=== PATIENT | female | born 1965 | race Caucasian/White ===

== ENCOUNTER 2018-10-01 23:10 | Inpatient (IN) | payer MEDICARE ==
[~2018-10-01] VITALS: Ht 162.6 cm; Wt 86.0 kg
[~2018-10-01 23:10] MED LIST: AMOX1XR PO; Baclofen20 MG PO; CALCA500CH PO; CHOL10002 PO; COPAXONE SQ; CYCL10 PO; DIAZ5 PO; DULO30 PO; FLONASE ALLERG9.9 ML; FLUO10 PO; FLUO20; FLUO20 PO; IBUP400 PO; INTE30I; LAVAP17G PO; META800 PO; NAPR220 PO; OXYACE5T PO; OXYACE7.5T PO; PREG50; PROBIOTIC1 EAC1 PO; Percocet 5-3251 EACH PO; RXOXYACE PO; TRAM50 PO; TURMERIC500 MG PO; Tysabri300 MG/15 IV; Valium5 MG PO; [UNRECOGNIZED DRUG - CODE] PO
[2018-10-01 23:56] LABS: BASOPHILS ABSOLUTE AUTO 0.07 K/mm3 (0.00-0.23); BASOPHILS PERCENT AUTO 1 % (0-2); EOSINOPHILS ABSOLUTE AUTO 0.25 K/mm3 (0.00-0.68); EOSINOPHILS PERCENT AUTO 2 % (0-6); Hematocrit 44.2 % (33.0-51.0); Hemoglobin 14.3 g/dL (11.5-16.0); IMMATURE GRAN ABSOLUTE AUTO 0.03 K/mm3 (0.00-0.10); IMMATURE GRAN PERCENT AUTO 0 % (0-1); LYMPHOCYTES ABSOLUTE AUTO 1.62 K/mm3 (0.84-5.20); LYMPHOCYTES PERCENT AUTO 14 % (21-46); MONOCYTES ABSOLUTE AUTO 1.01 K/mm3 (0.16-1.47); MONOCYTES PERCENT AUTO 9 % (4-13); Mean Corpuscular HGB 29.1 pg (26.0-34.0); Mean Corpuscular HGB Conc 32.4 g/dL (31.5-36.5); Mean Corpuscular Volume 90 fL (80-100); Mean Platelet Volume 9.6 fL (9.1-12.4); NEUTROPHILS ABSOLUTE AUTO 8.54 K/mm3 (1.96-9.15); NEUTROPHILS PERCENT AUTO 74 % (41-73); Platelet Count 340 K/mm3 (150-400); RDW Coefficient Variation 12.6 % (11.7-14.2); RDW Standard Deviation 41.7 fL (35.1-46.3); Red Blood Cell Count 4.91 M/mm3 (3.80-5.20); White Blood Cell Count 11.52 K/mm3 (4.00-11.30)
[2018-10-02 00:14] LABS: Alanine Aminotransfer (ALT/SGP 18 U/L (12-78); Albumin, Blood 4.2 g/dL (3.4-5.0); Albumin/Globulin Ratio 1.1 (0.8-1.8); Alk Phos 188 U/L (50-136); Anion Gap 9 mmol/L (6-16); Aspartate Aminotrans (AST/SGOT 15 U/L (12-37); Bilirubin, Total 0.6 mg/dL (0.1-1.0); Blood Urea Nitrogen 12 mg/dL (8-24); Bun/Creatinine Ratio 18.4 (12.0-20.0); CO2, Blood 22 mmol/L (21-32); Chloride, Blood 106 mmol/L (98-108); Creatinine, Blood 0.65 mg/dL (0.40-1.00); Globulin, Blood 3.7 g/dL (2.2-4.0); Glomerular Filtration Rate >60 (60-); Glucose, Blood 148 mg/dL (70-99); Potassium, Blood 3.9 mmol/L (3.5-5.5); Sodium, Blood 137 mmol/L (136-145); Total Protein, Blood 7.9 g/dL (6.4-8.2)
[2018-10-02] MEDS ORDERED: ATOR10 PO (01:25)
[2018-10-02] MEDS ORDERED: METF500 PO (01:26)
[2018-10-02] MEDS ORDERED: OCREVUS300 MG/10 IV (01:27)
[2018-10-02 02:17] LABS: Source, Urine Clean Catch
[2018-10-02 02:20] LABS: Bilirubin, Urine Neg (Neg); Blood, Urine 1+ (Neg); Glucose Qualitative, Urine Neg (Neg); Ketones, Urine Neg (Neg); Leukocyte Esterase, Urine Neg (Neg); Nitrite, Urine Neg (Neg); Protein, Urine 1+ (Neg); Urobilinogen, Urine NORM (Normal)
[2018-10-02 02:21] LABS: Appearance, Urine Clear (Clear); Color, Urine Yellow (P-Yellow)
[2018-10-02 02:29] LABS: Bacteria Not Seen /hpf; Mucus Light (0-Heavy); Red Blood Cells, Urine Rare /hpf (0-2); Squamous Epithelial Cells Mod /hpf (Few); White Blood Cells, Urine Not Seen /hpf (0-5)
[2018-10-02 03:14] LABS: Influenza A Negative (NEGATIVE); Influenza B Negative (NEGATIVE)
--- NOTE | 2018-10-02 05:53 | NUR ---
LOOM FIXER APPRENTICE SUMMARY NEW ADMIT FROM THE ER. PT AAOX4 AND VERY PLEASANT. ADMITTED WITH WHAT THE PT DESCRIBES "A FLARE UP OF MY MS". PT REPORTS EXTREME WEAKNESS OF BLE AND IS UNABLE TO AMBULATE AT THIS TIME. AT BASELINE PT AMBULATES WITH A FWW. LO CATHETER PLACED IN ER PRIOR TO COMING TO MED FLOOR. STARTED ON ABX AND SOLUMEDROL DRIP. PT DENIES PAIN, SOB, N/V. VSS, WILL CONTINUE TO MONITOR.
[2018-10-02 06:58] LABS: Adenovirus Not Detected (NOT DETECT); Bordetella pertussis Not Detected (NOT DETECT); Chlamydophila pneumoniae Not Detected (NOT DETECT); Coronavirus 229E Not Detected (NOT DETECT); Coronavirus HKU1 Not Detected (NOT DETECT); Coronavirus NL63 Not Detected (NOT DETECT); Coronavirus OC43 Detected (NOT DETECT); Human Metapneumovirus Not Detected (NOT DETECT); Human Rhinovirus/Enterovirus Not Detected (NOT DETECT); Influenza A Not Detected (NOT DETECT); Influenza A/2009-H1 Not Detected (NOT DETECT); Influenza A/H1 Not Detected (NOT DETECT); Influenza A/H3 Not Detected (NOT DETECT); Influenza B Not Detected (NOT DETECT); Mycoplasma pneumoniae Not Detected (NOT DETECT); Parainfluenza Virus 1 Not Detected (NOT DETECT); Parainfluenza Virus 2 Not Detected (NOT DETECT); Parainfluenza Virus 3 Not Detected (NOT DETECT); Parainfluenza Virus 4 Not Detected (NOT DETECT); Respiratory Syncytial Virus Not Detected (NOT DETECT)
[2018-10-02 07:28] LABS: Hematocrit 46.1 % (33.0-51.0); Hemoglobin 14.5 g/dL (11.5-16.0); Mean Corpuscular HGB 29.7 pg (26.0-34.0); Mean Corpuscular HGB Conc 31.5 g/dL (31.5-36.5); Mean Platelet Volume 9.8 fL (9.1-12.4); Platelet Count 258 K/mm3 (150-400); RDW Coefficient Variation 12.6 % (11.7-14.2); RDW Standard Deviation 43.5 fL (35.1-46.3); Red Blood Cell Count 4.88 M/mm3 (3.80-5.20); White Blood Cell Count 8.26 K/mm3 (4.00-11.30)
[2018-10-02 07:31] LABS: Mean Corpuscular Volume 95 fL (80-100)
[2018-10-02 07:46] LABS: Alanine Aminotransfer (ALT/SGP 19 U/L (12-78); Albumin, Blood 3.8 g/dL (3.4-5.0); Alk Phos 181 U/L (50-136); Anion Gap 7 mmol/L (6-16); Aspartate Aminotrans (AST/SGOT 20 U/L (12-37); Bilirubin, Total 0.6 mg/dL (0.1-1.0); Blood Urea Nitrogen 12 mg/dL (8-24); CO2, Blood 22 mmol/L (21-32); Calcium, Blood 8.8 mg/dL (8.5-10.1); Chloride, Blood 110 mmol/L (98-108); Creatinine, Blood 0.71 mg/dL (0.40-1.00); Globulin, Blood 3.7 g/dL (2.2-4.0); Glomerular Filtration Rate >60 (60-); Glucose, Blood 191 mg/dL (70-99); Potassium, Blood 4.2 mmol/L (3.5-5.5); Sodium, Blood 139 mmol/L (136-145); Total Protein, Blood 7.5 g/dL (6.4-8.2)
--- NOTE | 2018-10-02 18:32 | NUR ---
SHIFT SUMMARY PATIENT HAS BEEN PLEASANT. PT EVAL AND TREATMENT FOR RECOMMENDATIONS. DINNER IS THE FIRST MEAL SHE HAS EATEN TODAY AND SHE IS STILL WORKING ON THAT. NO ACUTE CONCERNS. CATHETER STILL IN PLACE, NO ACUTE CONCERNS FROM THE PATIENT.
--- NOTE | 2018-10-03 06:06 | NUR ---
SHIFT SUMMARY PT AWAKE MUCH OF THE SHIFT. PT ATTRIBUTED THIS TO IV SOLUMEDROL PT WAS RECIEVING. HOWEVER PT IS PLEASANT AND COOPERATIVE AND REPORTS OVERALL SHE FEELS MUCH STRONGER AND BELIEVES THE IV STEROIDS HAVE WORKED WELL. SHE IS HOPING TO GET OUT OF BED TODAY SO THAT SHE CAN HAVE HER CATHETER REMOVED. AT BASELINE PT CAN AMBULATE SHORT DISTANCES WITH A WALKER BUT HAS BEEN ON BEDREST SINCE ADMISSION YESTERDAY. CHRONIC N/T TO BLE'S. DENIES ANY PAIN. HAD VERY LARGE BOWEL MOVEMENT ON THE BEDPAN. FORMED AND BROWN. OTHERWISE UNEVENTFUL NIGHT. VSS. FINALLY ASLEEP AND RESTING WELL IN BED AT THIS TIME.
--- NOTE | 2018-10-03 17:28 | NUR ---
SHIFT SUMMARY PATIENT IS PLEASANT, MOVING INDEPENDENTLY IN HER ROOM. WILL ASSESS FOR MORE CHANGES. SALINE LOCKED WHEN SOLU-MEDROL IS FINISHED. SHE CALLS APPROPRIATELY. REMAINS ALERT AND ORIENTED. NO ACUTE CONCERNS AT THIS TIME FROM THE PATIENT.
--- NOTE | 2018-10-04 04:59 | NUR ---
SHIFT SUMMARY PT REPORTS THAT SHE FEELS PRETTY MUCH COMPLETELY BACK TO HER BASELINE. DID NOT SLEEP MUCH THROUGHOUT THE EVENING DUE TO IV STEROIDS BUT OVERALL PT REPORTS FEELING GOOD. AMBULATING INDEPENDENTLY TO THE RESTROOM AND VOIDING WELL AFTER LO WAS D/C'D YESTERDAY. PT HAS HAD NO COMPLAINTS OF PAIN. VITAL SIGNS HAVE BEEN STABLE. NO ACUTE CHANGES THIS EVENING. WILL CONTINUE TO MONITOR.
--- NOTE | 2018-10-04 12:12 | NUR ---
DISCHARGE SUMMARY PATIENT INSTRUCTIONS GONE OVERWITH THE PATIENT AND HER FAMILY. ALL MEDICATIONS WERE FAXED TO THE PATIENT'S PREFERRED PHARMACY. PATIENT IV REMOVED. NO ACUTE CONCERNS AT THIS TIME. PATIENT WHEELED OUT BY MANUAL ARTS THERAPIST.
== END 2018-10-04 11:44 | disposition home or self-care (01) | DRG 60 ==
LOC: ER 23:10 → MEDS 10-02 03:41 → ENPENDDIS 10-04 10:25 → MEDS 10-04 11:44
PROVIDERS: Emergency Medicine; ADMIT Internal Medicine
DX: G35 Multiple sclerosis (principal); J01.90 Acute sinusitis, unspecified; E11.9 Type 2 diabetes mellitus without complications; E78.5 Hyperlipidemia, unspecified; F32.9 Major depressive disorder, single episode, unspecified; M54.9 Dorsalgia, unspecified; G89.29 Other chronic pain
CPT/HCPCS: 36415; 51702; 71046; 80053; 81001; 82947; 83605; 84145; 85025; 85027; 87081; 87430; 87486; 87581; 87633; 87798; 87804; 96361-59; 96374-59; 96375-59; 97162; 99285-25; J0696; J1650; J1885; J2930; J7030; P9612

== ENCOUNTER 2020-04-03 19:05 | Inpatient (IN) | payer MEDICARE, OTHER ==
[~2020-04-03] VITALS: Ht 162.6 cm; Wt 96.7 kg
[~2020-04-03 19:05] MED LIST changes: +ATOR10 PO; +METF500 PO; +OCREVUS300 MG/10 IV
[2020-04-03 20:13] LABS: BASOPHILS ABSOLUTE AUTO 0.05 K/mm3 (0.00-0.23); BASOPHILS PERCENT AUTO 0 % (0-2); EOSINOPHILS ABSOLUTE AUTO 0.16 K/mm3 (0.00-0.68); EOSINOPHILS PERCENT AUTO 1 % (0-6); Hematocrit 46.4 % (33.0-51.0); Hemoglobin 15.3 g/dL (11.5-16.0); IMMATURE GRAN ABSOLUTE AUTO 0.03 K/mm3 (0.00-0.10); IMMATURE GRAN PERCENT AUTO 0 % (0-1); LYMPHOCYTES ABSOLUTE AUTO 3.14 K/mm3 (0.84-5.20); LYMPHOCYTES PERCENT AUTO 24 % (21-46); MONOCYTES ABSOLUTE AUTO 0.92 K/mm3 (0.16-1.47); MONOCYTES PERCENT AUTO 7 % (4-13); Mean Corpuscular HGB 28.9 pg (26.0-34.0); Mean Corpuscular Volume 88 fL (80-100); Mean Platelet Volume 9.7 fL (9.1-12.4); NEUTROPHILS ABSOLUTE AUTO 8.73 K/mm3 (1.96-9.15); NEUTROPHILS PERCENT AUTO 67 % (41-73); Platelet Count 403 K/mm3 (150-400); RDW Coefficient Variation 12.6 % (11.7-14.2); Red Blood Cell Count 5.29 M/mm3 (3.80-5.20); White Blood Cell Count 13.03 K/mm3 (4.00-11.30)
[2020-04-03 21:47] LABS: Alanine Aminotransfer (ALT/SGP 53 U/L (12-78); Albumin, Blood 4.2 g/dL (3.4-5.0); Albumin/Globulin Ratio 1.1 (0.8-1.8); Alk Phos 199 U/L (50-136); Anion Gap 13 mmol/L (6-16); Aspartate Aminotrans (AST/SGOT 46 U/L (12-37); Bilirubin, Total 0.5 mg/dL (0.1-1.0); Blood Urea Nitrogen 12 mg/dL (8-24); Bun/Creatinine Ratio 16.8 (12.0-20.0); CO2, Blood 25 mmol/L (21-32); Calcium, Blood 9.4 mg/dL (8.5-10.1); Chloride, Blood 102 mmol/L (98-108); Creatinine, Blood 0.72 mg/dL (0.40-1.00); Globulin, Blood 3.8 g/dL (2.2-4.0); Glomerular Filtration Rate >60 (60-); Glucose, Blood 164 mg/dL (70-99); Potassium, Blood 3.7 mmol/L (3.5-5.5); Sodium, Blood 140 mmol/L (136-145); Troponin I <0.015 ng/mL (0.000-0.040)
[2020-04-03 22:07] LABS: Source, Urine Catheter
[2020-04-03 22:13] LABS: Appearance, Urine Clear (Clear); Bilirubin, Urine Neg (Neg); Blood, Urine Neg (Neg); Color, Urine Yellow (P-Yellow); Glucose Qualitative, Urine 1+ (Neg); Ketones, Urine Neg (Neg); Leukocyte Esterase, Urine Neg (Neg); Nitrite, Urine Neg (Neg); Protein, Urine Neg (Neg); Specific Gravity, Urine 1.025 (1.003-1.022); Urobilinogen, Urine NORM (Normal)
[2020-04-03] MEDS ORDERED: SITA100T2 PO (23:58)
[2020-04-03] MEDS ORDERED: ATOR20 PO (23:58)
--- NOTE | 2020-04-04 02:43 | NUR ---
PATIENT ARRIVED TO ROOM 334 VIA STRETCHER AT 0112. SHE IS ALERT AND ORIENTED X4. NON AMBULATORY, HAS NO MOVEMENT OF LEFT LEG AND GROSS MOVEMENT OF RIGHT LEG. PAIN MEDICATION GIVEN, PATIENT NOW RESTING.
[2020-04-04 05:26] LABS: BASOPHILS ABSOLUTE AUTO 0.04 K/mm3 (0.00-0.23); BASOPHILS PERCENT AUTO 0 % (0-2); EOSINOPHILS ABSOLUTE AUTO 0.17 K/mm3 (0.00-0.68); EOSINOPHILS PERCENT AUTO 2 % (0-6); Hematocrit 40.1 % (33.0-51.0); Hemoglobin 12.9 g/dL (11.5-16.0); IMMATURE GRAN ABSOLUTE AUTO 0.02 K/mm3 (0.00-0.10); IMMATURE GRAN PERCENT AUTO 0 % (0-1); LYMPHOCYTES ABSOLUTE AUTO 3.32 K/mm3 (0.84-5.20); LYMPHOCYTES PERCENT AUTO 34 % (21-46); MONOCYTES ABSOLUTE AUTO 0.76 K/mm3 (0.16-1.47); MONOCYTES PERCENT AUTO 8 % (4-13); Mean Corpuscular HGB 28.9 pg (26.0-34.0); Mean Corpuscular HGB Conc 32.2 g/dL (31.5-36.5); Mean Corpuscular Volume 90 fL (80-100); Mean Platelet Volume 9.5 fL (9.1-12.4); NEUTROPHILS ABSOLUTE AUTO 5.61 K/mm3 (1.96-9.15); NEUTROPHILS PERCENT AUTO 57 % (41-73); Platelet Count 334 K/mm3 (150-400); RDW Coefficient Variation 12.8 % (11.7-14.2); RDW Standard Deviation 42.2 fL (35.1-46.3); Red Blood Cell Count 4.47 M/mm3 (3.80-5.20); White Blood Cell Count 9.92 K/mm3 (4.00-11.30)
[2020-04-04 05:55] LABS: Anion Gap 8 mmol/L (6-16); Blood Urea Nitrogen 10 mg/dL (8-24); Bun/Creatinine Ratio 13.2 (12.0-20.0); CO2, Blood 25 mmol/L (21-32); Calcium, Blood 8.6 mg/dL (8.5-10.1); Chloride, Blood 110 mmol/L (98-108); Creatinine, Blood 0.76 mg/dL (0.40-1.00); Glomerular Filtration Rate >60 (60-); Glucose, Blood 132 mg/dL (70-99); Potassium, Blood 3.9 mmol/L (3.5-5.5); Sodium, Blood 143 mmol/L (136-145)
--- NOTE | 2020-04-04 06:20 | NUR ---
SHIFT SUMMARY PATIENT HAS BEEN ABLE TO SLEEP ALL NIGHT SINCE SETTLING IN FROM HER ADMISSION. SHE HAS HAD NO ADDITIONAL COMPLAINTS OF PAIN AND NO COMPLAINTS OF SHORTNESS OF BREATH OR NAUSEA. PATIENT REMAINS NPO. IV IS PATENT AND INFUSING WITH NORMAL SALINE AT 100 ML/HR. BED IN LOWEST POSITION WITH WHEELS LOCKED. CALL LIGHT WITHIN REACH. REPORT GIVEN TO GUERRERO MASTERS.
--- NOTE | 2020-04-04 19:37 | NUR ---
SHIFT SUMMARY- PT ALERT AND ORIENTED 1PA TO THE BATHROOM. 2 OF 2 OF THE NS RUNNING NOW IV WILL BE SL AFTER THIS BAG. PT HAS NOT NEEDED ANY PAIN MEDICATION T/O THE DAY. PT SEEMS TO BE IN GOOD SPIRITS, RECIEVEING 2 TYPES OF IV ABX. BEDSIDE REPORT COMPLETED WITH NIGHT RN MANUEL. NO S&S OF DISTRESS NOTED AT THE TIME OF REPORT.
--- NOTE | 2020-04-05 03:17 | NUR ---
SHIFT SUMMARY PATIENT HAD NO ACUTE CHANGES OBSERVED. AXO X 4 AND ONE ASSIST W/FWW/GAIT TO BSC. DENIES PAIN, SOB, AND N/V. PIV REMAINS INTACT. NS FINISHED INFUSING AT 100mL/HR BAG TWO OF TWO. IV ABX INFUSED. CBG 164. DIET ADVANCED TO FULL LIQUID. VSS/AFEBRILE. CALL LIGHT IN REACH. BED IN LOWEST POSITION. WILL CONTINUE TO MONITOR UNTIL DAY SHIFT NURSE ASSUMES CARE.
[2020-04-05] MEDS ORDERED: MIRALAX17 GM PO (13:11)
[2020-04-05] MEDS ORDERED: CEFD300 PO (13:12)
[2020-04-05] MEDS ORDERED: METR500 PO (13:12)
[2020-04-05] MEDS ORDERED: OMEP20ER PO (13:13)
--- NOTE | 2020-04-05 14:31 | NUR ---
DISCHARGE NOTE- PT WAS GIVEN VERBAL AND WRITTEN DISCHARGE INSTRUCTIONS AND ACKNOWLEDGED UNDERSTANDING OF THEM, NO FURTHER QUESTIONS AT THE TIME OF DISCHARGE. NO S&S OF DISTRESS NOTED AT THE TIME OF DISCHARGE. PT SPOUSE ARRIVED WITH HER CLOTHING AND SHE DRESSED HERSELF. PT ESCORTED OUT VIA WC BY THE BUSINESS MANAGER COLLEGE OR UNIVERSITY IV DC'D PRIOR TO DISCHARGE.
== END 2020-04-05 14:30 | disposition home or self-care (01) | DRG 392 ==
LOC: ER 19:05 → MEDS 23:54
PROVIDERS: Emergency Medicine; ADMIT Internal Medicine
PROC: 3E0234Z Introduction of Serum, Toxoid and Vaccine into Muscle, Percutaneous Approach (ICD-10-PCS; principal; 2020-04-04)
DX: K57.32 Diverticulitis of large intestine without perforation or abscess without bleeding (principal); R65.10 Systemic inflammatory response syndrome (SIRS) of non-infectious origin without acute organ dysfunction; G35 Multiple sclerosis; Z23 Encounter for immunization; E11.9 Type 2 diabetes mellitus without complications; E78.5 Hyperlipidemia, unspecified; F32.9 Major depressive disorder, single episode, unspecified; I65.29 Occlusion and stenosis of unspecified carotid artery; G89.29 Other chronic pain; M54.9 Dorsalgia, unspecified; D25.1 Intramural leiomyoma of uterus; Z79.84 Long term (current) use of oral hypoglycemic drugs
CPT/HCPCS: 36415; 51701; 51702; 71045; 74177; 80048; 80053; 81003; 81025; 82947; 83605; 83690; 84484; 85025; 87040; 93005; 93010; 96361; 96365; 99285-25; A9270; C9113; G0008; J0696; J1650; J2543; J3010; J7030; Q2038; Q9967; U0003

== ENCOUNTER 2021-04-17 19:15 | Inpatient (IN) | payer MEDICARE, OTHER ==
[~2021-04-17] VITALS: Ht 162.6 cm; Wt 91.3 kg
[~2021-04-17 19:15] MED LIST changes: +ATOR20 PO; +CEFD300 PO; +METR500 PO; +MIRALAX17 GM PO; +OMEP20ER PO; +SITA100T2 PO
[2021-04-17 20:40] LABS: BASOPHILS ABSOLUTE AUTO 0.05 K/mm3 (0.00-0.23); BASOPHILS PERCENT AUTO 0 % (0-2); EOSINOPHILS ABSOLUTE AUTO 0.32 K/mm3 (0.00-0.68); EOSINOPHILS PERCENT AUTO 2 % (0-6); Hematocrit 41.3 % (33.0-51.0); Hemoglobin 13.9 g/dL (11.5-16.0); IMMATURE GRAN ABSOLUTE AUTO 0.06 K/mm3 (0.00-0.10); IMMATURE GRAN PERCENT AUTO 0 % (0-1); LYMPHOCYTES ABSOLUTE AUTO 1.53 K/mm3 (0.84-5.20); LYMPHOCYTES PERCENT AUTO 9 % (21-46); MONOCYTES ABSOLUTE AUTO 0.73 K/mm3 (0.16-1.47); MONOCYTES PERCENT AUTO 5 % (4-13); Mean Corpuscular HGB 29.4 pg (26.0-34.0); Mean Corpuscular HGB Conc 33.7 g/dL (31.5-36.5); Mean Corpuscular Volume 88 fL (80-100); Mean Platelet Volume 9.9 fL (9.1-12.4); NEUTROPHILS ABSOLUTE AUTO 13.65 K/mm3 (1.96-9.15); NEUTROPHILS PERCENT AUTO 83 % (41-73); Platelet Count 452 K/mm3 (150-400); RDW Coefficient Variation 12.8 % (11.7-14.2); RDW Standard Deviation 40.8 fL (35.1-46.3); Red Blood Cell Count 4.72 M/mm3 (3.80-5.20); White Blood Cell Count 16.34 K/mm3 (4.00-11.30)
[2021-04-17 21:02] LABS: Alanine Aminotransfer (ALT/SGP 20 U/L (12-78); Albumin, Blood 3.6 g/dL (3.4-5.0); Albumin/Globulin Ratio 0.9 (0.8-1.8); Alk Phos 214 U/L (50-136); Anion Gap 10 mmol/L (6-16); Aspartate Aminotrans (AST/SGOT 22 U/L (12-37); Bilirubin, Total 0.7 mg/dL (0.1-1.0); Blood Urea Nitrogen 15 mg/dL (8-24); Bun/Creatinine Ratio 16.9 (12.0-20.0); CO2, Blood 26 mmol/L (21-32); Calcium, Blood 10.3 mg/dL (8.5-10.1); Chloride, Blood 103 mmol/L (98-108); Creatinine, Blood 0.89 mg/dL (0.40-1.00); Globulin, Blood 3.8 g/dL (2.2-4.0); Glomerular Filtration Rate >60 (60-); Glucose, Blood 164 mg/dL (70-99); Potassium, Blood 4.1 mmol/L (3.5-5.5); Sodium, Blood 139 mmol/L (136-145); Total Protein, Blood 7.4 g/dL (6.4-8.2); Troponin I <0.015 ng/mL (0.000-0.040)
[2021-04-17 21:29] LABS: Adenovirus Not Detected (NOT DETECT); Bordetella pertussis Not Detected (NOT DETECT); Chlamydophila pneumoniae Not Detected (NOT DETECT); Coronavirus 229E Not Detected (NOT DETECT); Coronavirus HKU1 Not Detected (NOT DETECT); Coronavirus NL63 Not Detected (NOT DETECT); Coronavirus OC43 Not Detected (NOT DETECT); Human Metapneumovirus Not Detected (NOT DETECT); Human Rhinovirus/Enterovirus Not Detected (NOT DETECT); Influenza A/2009-H1 Not Detected (NOT DETECT); Influenza A/H1 Not Detected (NOT DETECT); Influenza A/H3 Not Detected (NOT DETECT); Influenza B Not Detected (NOT DETECT); Mycoplasma pneumoniae Not Detected (NOT DETECT); Parainfluenza Virus 1 Not Detected (NOT DETECT); Parainfluenza Virus 2 Not Detected (NOT DETECT); Parainfluenza Virus 3 Not Detected (NOT DETECT); Parainfluenza Virus 4 Not Detected (NOT DETECT); Respiratory Syncytial Virus Not Detected (NOT DETECT); SARS-Cov-2 (COVID-19), BioFire Not Detected (NOT DETECT)
[2021-04-17] MEDS ORDERED: ATOR10 PO (23:49)
[2021-04-18 04:16] LABS: BASOPHILS ABSOLUTE AUTO 0.05 K/mm3 (0.00-0.23); BASOPHILS PERCENT AUTO 0 % (0-2); EOSINOPHILS ABSOLUTE AUTO 0.25 K/mm3 (0.00-0.68); EOSINOPHILS PERCENT AUTO 2 % (0-6); Hematocrit 37.8 % (33.0-51.0); Hemoglobin 12.5 g/dL (11.5-16.0); IMMATURE GRAN ABSOLUTE AUTO 0.06 K/mm3 (0.00-0.10); IMMATURE GRAN PERCENT AUTO 1 % (0-1); LYMPHOCYTES ABSOLUTE AUTO 2.34 K/mm3 (0.84-5.20); LYMPHOCYTES PERCENT AUTO 18 % (21-46); MONOCYTES ABSOLUTE AUTO 0.97 K/mm3 (0.16-1.47); MONOCYTES PERCENT AUTO 8 % (4-13); Mean Corpuscular HGB 29.8 pg (26.0-34.0); Mean Corpuscular HGB Conc 33.1 g/dL (31.5-36.5); Mean Corpuscular Volume 90 fL (80-100); Mean Platelet Volume 9.4 fL (9.1-12.4); NEUTROPHILS ABSOLUTE AUTO 9.29 K/mm3 (1.96-9.15); NEUTROPHILS PERCENT AUTO 72 % (41-73); Platelet Count 389 K/mm3 (150-400); RDW Coefficient Variation 13.1 % (11.7-14.2); RDW Standard Deviation 42.7 fL (35.1-46.3); White Blood Cell Count 12.96 K/mm3 (4.00-11.30)
[2021-04-18 04:40] LABS: Alanine Aminotransfer (ALT/SGP 15 U/L (12-78); Albumin, Blood 3.1 g/dL (3.4-5.0); Albumin/Globulin Ratio 1.1 (0.8-1.8); Alk Phos 192 U/L (50-136); Anion Gap 7 mmol/L (6-16); Aspartate Aminotrans (AST/SGOT 11 U/L (12-37); Bilirubin, Total 0.6 mg/dL (0.1-1.0); Blood Urea Nitrogen 18 mg/dL (8-24); Bun/Creatinine Ratio 19.9 (12.0-20.0); CO2, Blood 26 mmol/L (21-32); Calcium, Blood 9.4 mg/dL (8.5-10.1); Chloride, Blood 108 mmol/L (98-108); Creatinine, Blood 0.91 mg/dL (0.40-1.00); Globulin, Blood 2.7 g/dL (2.2-4.0); Glomerular Filtration Rate >60 (60-); Glucose, Blood 138 mg/dL (70-99); Potassium, Blood 3.7 mmol/L (3.5-5.5); Sodium, Blood 141 mmol/L (136-145); Total Protein, Blood 5.8 g/dL (6.4-8.2)
--- NOTE | 2021-04-18 18:28 | NUR ---
SHIFT SUMMARY PATIENT DENIES PAIN, NAUSEA, AND SHORTNESS OF BREATH. 4L/NC TO MAINTAIN OXYGEN SATURATION ABOVE 92%. OCCASSIONAL COUGH. UP SBA W/FWW TO BATHROOM. PT WORKKED WITH PATIENT. EATING AND DRINKING WELL. PLEASANT AND COOPERATIVE WITH CARE.
[2021-04-19 09:30] LABS: BASOPHILS ABSOLUTE AUTO 0.05 K/mm3 (0.00-0.23); BASOPHILS PERCENT AUTO 0 % (0-2); EOSINOPHILS PERCENT AUTO 4 % (0-6); Hematocrit 38.6 % (33.0-51.0); Hemoglobin 12.4 g/dL (11.5-16.0); IMMATURE GRAN ABSOLUTE AUTO 0.05 K/mm3 (0.00-0.10); IMMATURE GRAN PERCENT AUTO 0 % (0-1); LYMPHOCYTES ABSOLUTE AUTO 2.95 K/mm3 (0.84-5.20); LYMPHOCYTES PERCENT AUTO 22 % (21-46); MONOCYTES PERCENT AUTO 7 % (4-13); Mean Corpuscular HGB 29.2 pg (26.0-34.0); Mean Corpuscular HGB Conc 32.1 g/dL (31.5-36.5); Mean Corpuscular Volume 91 fL (80-100); Mean Platelet Volume 9.4 fL (9.1-12.4); NEUTROPHILS ABSOLUTE AUTO 8.74 K/mm3 (1.96-9.15); NEUTROPHILS PERCENT AUTO 66 % (41-73); Platelet Count 370 K/mm3 (150-400); RDW Standard Deviation 42.7 fL (35.1-46.3); Red Blood Cell Count 4.25 M/mm3 (3.80-5.20); White Blood Cell Count 13.19 K/mm3 (4.00-11.30)
[2021-04-19 10:04] LABS: Anion Gap 9 mmol/L (6-16); Blood Urea Nitrogen 16 mg/dL (8-24); Bun/Creatinine Ratio 19.7 (12.0-20.0); CO2, Blood 27 mmol/L (21-32); Chloride, Blood 105 mmol/L (98-108); Creatinine, Blood 0.81 mg/dL (0.40-1.00); Glomerular Filtration Rate >60 (60-); Glucose, Blood 128 mg/dL (70-99); Potassium, Blood 3.8 mmol/L (3.5-5.5); Sodium, Blood 141 mmol/L (136-145)
--- NOTE | 2021-04-19 17:29 | NUR ---
SHIFT SUMMARY PATIENT DENIES PAIN, NAUSEA, AND SHORTNESS OF BREATH AT REST. 4L/NC TO MAINTAIN OXYGEN SATURATION. MILDLY DYSPNEIC WITH ACTIVITY. UP SBA W/FWW TO BR. 500 ML FLUID BOLUS GIVEN THIS AM FOR HYPOTENSION, WITH GOOD EFFECT. PLEASANT AND COOPERATIVE WITH CARE.
--- NOTE | 2021-04-20 03:03 | NUR ---
POLICY CHANGE CLERK SUMMARY PATIENT HAD A FAIR SHIFT. NO COMPLAINT. HER VITALS WERE STABLE. WILL CONTINUE TO MONITOR HER.
--- NOTE | 2021-04-20 15:43 | NUR ---
CALLED DR RENEE- PT WAS ON 4L VIA HI OVERNIGHT. O2 SATS MID 90'S, PER ORDER NC DC'D. SATS MAINTAINED 89%-90% THIS EVENING O2 SATS WER 86%, PT DENIES SOB AT THIS TIME. RECIEVED ORDER TO PLACE THE PT ON O2 VIA HI IF SATS DROP BELOW 85%. REQUESTED AND RECIEVED ORDER FOR CONT BIOX. CALLED RT TO REQUEST BIOX SETUP. PT SITTING UP IN BED, CALL LIGHT IN REACH NO S&S OF DISTRESS NOTED AT THIS TIME WILL CTM.
--- NOTE | 2021-04-20 18:39 | NUR ---
SHIFT SUMMARY- PT ON CONT BIOX SATS LOW 90'S WITH SOME BRIEF DESATURATIONS WITH ACTIVITY. PT HAS HAD A NON-PRODUCTIVE HACKING COUGH THIS EVENING. PT REMAINS IN GOOD SPIRITS, NO S&S OF DISTRESS NOTED AT THIS TIME. PER DR ORDER PT TO BE PLACED ON O2 IF SATS DROP BELOW 85% AND MAINTAIN. LONG HOB IS UP AT 90 PT SATS HAVE MAINTAINED IN THE LOW 90'S. DR AWARE. PT RECIEVING IV ABX CURRENTLY THEN RIGHT HAND IV IS SL.
--- NOTE | 2021-04-21 01:23 | NUR ---
SCHOOL TREASURER SUMMARY. PATIENT IS HAVING A CALM AND FAIR SHIFT. HER VITALS SO FAR IS STABLE. SHE IS CURRENTLY ON 1L OF OXYGEN SHE DESATURATES TO 87% ON ROOM AIR. SHE LODGED NIL FRESH COMPLAIN. WILL CONTINUE TO MONITOR PATIENT.
[2021-04-21 04:48] LABS: BASOPHILS ABSOLUTE AUTO 0.08 K/mm3 (0.00-0.23); BASOPHILS PERCENT AUTO 1 % (0-2); EOSINOPHILS ABSOLUTE AUTO 0.58 K/mm3 (0.00-0.68); EOSINOPHILS PERCENT AUTO 6 % (0-6); Hematocrit 39.1 % (33.0-51.0); Hemoglobin 12.6 g/dL (11.5-16.0); IMMATURE GRAN ABSOLUTE AUTO 0.04 K/mm3 (0.00-0.10); IMMATURE GRAN PERCENT AUTO 0 % (0-1); LYMPHOCYTES ABSOLUTE AUTO 2.95 K/mm3 (0.84-5.20); LYMPHOCYTES PERCENT AUTO 28 % (21-46); MONOCYTES ABSOLUTE AUTO 0.89 K/mm3 (0.16-1.47); MONOCYTES PERCENT AUTO 9 % (4-13); Mean Corpuscular HGB Conc 32.2 g/dL (31.5-36.5); Mean Corpuscular Volume 90 fL (80-100); Mean Platelet Volume 9.3 fL (9.1-12.4); NEUTROPHILS ABSOLUTE AUTO 5.84 K/mm3 (1.96-9.15); NEUTROPHILS PERCENT AUTO 56 % (41-73); Platelet Count 398 K/mm3 (150-400); RDW Coefficient Variation 12.5 % (11.7-14.2); RDW Standard Deviation 41.2 fL (35.1-46.3); Red Blood Cell Count 4.34 M/mm3 (3.80-5.20); White Blood Cell Count 10.38 K/mm3 (4.00-11.30)
[2021-04-21 05:02] LABS: Anion Gap 7 mmol/L (6-16); Blood Urea Nitrogen 20 mg/dL (8-24); Bun/Creatinine Ratio 21.9 (12.0-20.0); CO2, Blood 29 mmol/L (21-32); Calcium, Blood 9.7 mg/dL (8.5-10.1); Chloride, Blood 104 mmol/L (98-108); Creatinine, Blood 0.91 mg/dL (0.40-1.00); Glomerular Filtration Rate >60 (60-); Glucose, Blood 106 mg/dL (70-99); Potassium, Blood 3.8 mmol/L (3.5-5.5); Sodium, Blood 140 mmol/L (136-145)
--- NOTE | 2021-04-21 18:33 | NUR ---
SHIFT SUMMARY: NO ACUTE EVENTS. NO EVENTS ON TELEMETRY, SR 80'S. ON ROOM AIR, OXIMETRY SHOWS O2 SAT >90% WHILE AWAKE. LUNG SOUNDS WITH CRACKLES IN LLL, DIM IN RLL; PRODUCTIVE COUGH, SPUTUM NOT OBSERVED. DENIED PAIN. GETTING UP TO BR WITH FWW. IS HOPING TO BE D/C'D HOME TOMORROW.
--- NOTE | 2021-04-22 02:29 | NUR ---
WRINGER AND SETTER SUMMARY PATIENT HAD A CALM SHIFT. VITALS STABLE. SHE IS ON OXYGEN @1L OVER NIGHT. SHE LODGED NIL FRESH COMPLAINT. WILL CONTINUE TO MONITOR PATIENT.
[2021-04-22] MEDS ORDERED: CEFP200 PO (10:20)
[2021-04-22] MEDS ORDERED: AZIT500 PO (10:21)
--- NOTE | 2021-04-22 11:16 | NUR ---
PATIENT DISCHARGED TO HOME WITH SPOUSE. IV SALINE LOCK REMOVED WITHOUT INCIDENT. VERBALIZED UNDERSTANDING OF D/C INSTRUCTIONS. OFF UNIT VIA W/C AT 1115. NO BELONGINGS LEFT BEHIND IN ROOM.
--- NOTE | 2021-04-23 08:00 | NUR ---
Per Dr. May discharge appropriate. Patient was discharged on 04/22/21. Spoke with patient on 04/20/21 and she is aware of discharge and does not oppose. Patient has transportation; is scheduled to drive patient to their residence. Patient states she has a walker and wheelchair operable and in good repair. Patient states her home is safe. Will contact patient today (04/23/21) to schedule follow up visit with PCP. Patient states she has a good support network of family and friends. Patient does not have any barriers to discharge at this time.
== END 2021-04-22 11:13 | disposition home or self-care (01) | DRG 871 ==
LOC: ER 19:15 → MEDS 04-18 00:58
PROVIDERS: Internal Medicine; Physician Assistant; Student in an Organized Health Care Education/Training Program; ADMIT Family Medicine
DX: A41.9 Sepsis, unspecified organism (principal); J18.9 Pneumonia, unspecified organism; J96.01 Acute respiratory failure with hypoxia; G35 Multiple sclerosis; Z20.822 Contact with and (suspected) exposure to COVID-19; J45.909 Unspecified asthma, uncomplicated; R65.20 Severe sepsis without septic shock; E11.9 Type 2 diabetes mellitus without complications; F41.8 Other specified anxiety disorders; M51.36 Other intervertebral disc degeneration, lumbar region; M62.838 Other muscle spasm; Z23 Encounter for immunization; Z88.5 Allergy status to narcotic agent; Z88.8 Allergy status to other drugs, medicaments and biological substances; Z91.048 Other nonmedicinal substance allergy status; Z98.890 Other specified postprocedural states; Z98.1 Arthrodesis status; Z98.51 Tubal ligation status; Z79.899 Other long term (current) drug therapy; Z79.84 Long term (current) use of oral hypoglycemic drugs
CPT/HCPCS: 0202U; 36415; 71045; 80048; 80053; 82947; 83605; 84484; 85025; 85379; 87040; 90686; 93005; 93010; 94762; 96365; 99285-25; A9270; G0008; J0696; J1650; J7030; J7040; J7050

== ENCOUNTER → 2022-01-17 | Outpatient (CLI) | payer MEDICARE, OTHER ==
[~2022-01-17] MED LIST changes: +AZIT500 PO; +CEFP200 PO
[2022-01-17 19:56] LABS: Alanine Aminotransfer (ALT/SGP 45 U/L (12-78); Albumin/Globulin Ratio 1.4 (0.8-1.8); Alk Phos 195 U/L (50-136); Anion Gap 10 mmol/L (6-16); Aspartate Aminotrans (AST/SGOT 33 U/L (12-37); Bilirubin, Total 0.5 mg/dL (0.1-1.0); Blood Urea Nitrogen 15 mg/dL (8-24); Bun/Creatinine Ratio 21.5 (12.0-20.0); CHOL/HDL RATIO 3.9; CO2, Blood 24 mmol/L (21-32); Calcium, Blood 8.9 mg/dL (8.5-10.1); Chloride, Blood 107 mmol/L (98-108); Cholesterol 148 mg/dL (50-200); Globulin, Blood 2.8 g/dL (2.2-4.0); Glomerular Filtration Rate 103 (60-); Glucose, Blood 163 mg/dL (70-99); HDL Cholesterol 38 mg/dL (>39); LDL/HDL RATIO 1.9; Low Density Lipoprotein Chol 71 mg/dL (0-110); Potassium, Blood 4.7 mmol/L (3.5-5.5); Sodium, Blood 141 mmol/L (136-145); Total Protein, Blood 6.8 g/dL (6.4-8.2); Triglycerides 193 mg/dL (30-160); Very Low Density Lipoprot Chol 38 mg/dL (6-32)
[2022-01-17 20:02] LABS: BASOPHILS ABSOLUTE AUTO 0.05 K/mm3 (0.00-0.23); BASOPHILS PERCENT AUTO 1 % (0-2); EOSINOPHILS ABSOLUTE AUTO 0.16 K/mm3 (0.00-0.68); EOSINOPHILS PERCENT AUTO 2 % (0-6); Hematocrit 43.5 % (33.0-51.0); Hemoglobin 14.6 g/dL (11.5-16.0); IMMATURE GRAN ABSOLUTE AUTO 0.04 K/mm3 (0.00-0.10); IMMATURE GRAN PERCENT AUTO 1 % (0-1); LYMPHOCYTES ABSOLUTE AUTO 2.55 K/mm3 (0.84-5.20); LYMPHOCYTES PERCENT AUTO 30 % (21-46); MONOCYTES ABSOLUTE AUTO 0.52 K/mm3 (0.16-1.47); MONOCYTES PERCENT AUTO 6 % (4-13); Mean Corpuscular HGB 29.4 pg (26.0-34.0); Mean Corpuscular HGB Conc 33.6 g/dL (31.5-36.5); Mean Corpuscular Volume 88 fL (80-100); NEUTROPHILS PERCENT AUTO 61 % (41-73); RDW Coefficient Variation 12.7 % (11.7-14.2); RDW Standard Deviation 40.5 fL (35.1-46.3); Red Blood Cell Count 4.96 M/mm3 (3.80-5.20); White Blood Cell Count 8.42 K/mm3 (4.00-11.30)
[2022-01-17 20:23] LABS: Mean Platelet Volume 10.6 fL (9.1-12.4); Platelet Count 209 K/mm3 (150-400)
== END | disposition home or self-care (01) ==
LOC: LAB 12:00 → LAB SHORT 12:00
PROVIDERS: Internal Medicine
DX: E11.9 Type 2 diabetes mellitus without complications (principal)
CPT/HCPCS: 80053; 80061; 83036; 85025

== ENCOUNTER → 2022-07-09 | Outpatient (CLI) | payer MEDICARE, OTHER ==
[2022-07-12 16:10] LABS: HPV 16 Negative (Negative); HPV 18 Negative (Negative); HPV OTHER HR TYPES Negative (Negative)
== END ==
LOC: LAB SHORT 14:30 → LAB 14:30
PROVIDERS: Internal Medicine
DX: Z01.419 Encounter for gynecological examination (general) (routine) without abnormal findings (principal)
CPT/HCPCS: 87624; 88175

== ENCOUNTER 2022-08-01 11:07 | Emergency (ER) | payer MEDICARE, OTHER ==
[~2022-08-01] VITALS: Ht 165.1 cm; Wt 86.2 kg
[2022-08-01 12:38] LABS: BASOPHILS ABSOLUTE AUTO 0.05 K/mm3 (0.00-0.23); BASOPHILS PERCENT AUTO 1 % (0-2); EOSINOPHILS ABSOLUTE AUTO 0.14 K/mm3 (0.00-0.68); EOSINOPHILS PERCENT AUTO 2 % (0-6); Hematocrit 44.9 % (33.0-51.0); Hemoglobin 15.7 g/dL (11.5-16.0); IMMATURE GRAN ABSOLUTE AUTO 0.05 K/mm3 (0.00-0.10); IMMATURE GRAN PERCENT AUTO 1 % (0-1); LYMPHOCYTES PERCENT AUTO 17 % (21-46); MONOCYTES ABSOLUTE AUTO 0.96 K/mm3 (0.16-1.47); MONOCYTES PERCENT AUTO 11 % (4-13); Mean Corpuscular Volume 86 fL (80-100); Mean Platelet Volume 9.2 fL (9.1-12.4); NEUTROPHILS ABSOLUTE AUTO 5.97 K/mm3 (1.96-9.15); NEUTROPHILS PERCENT AUTO 69 % (41-73); Platelet Count 345 K/mm3 (150-400); RDW Coefficient Variation 12.5 % (11.7-14.2); RDW Standard Deviation 39.4 fL (35.1-46.3); Red Blood Cell Count 5.24 M/mm3 (3.80-5.20); White Blood Cell Count 8.67 K/mm3 (4.00-11.30)
[2022-08-01 12:42] LABS: Source, Urine Clean Catch
[2022-08-01 12:44] LABS: Appearance, Urine Hazy (Clear); Bilirubin, Urine Neg (Neg); Blood, Urine 2+ (Neg); Color, Urine Yellow (P-Yellow); Glucose Qualitative, Urine 1+ (Neg); Ketones, Urine 1+ (Neg); Leukocyte Esterase, Urine 3+ (Neg); Nitrite, Urine Neg (Neg); Protein, Urine 2+ (Neg); Specific Gravity, Urine 1.025 (1.003-1.022); Urobilinogen, Urine NORM (Normal)
[2022-08-01 12:54] LABS: Albumin, Blood 4.2 g/dL (3.4-5.0); Albumin/Globulin Ratio 1.2 (0.8-1.8); Bilirubin, Total 0.5 mg/dL (0.1-1.0); Bun/Creatinine Ratio 17.2 (12.0-20.0); Calcium, Blood 9.2 mg/dL (8.5-10.1); Creatinine, Blood 0.64 mg/dL (0.40-1.00); Globulin, Blood 3.5 g/dL (2.2-4.0); Potassium, Blood 4.2 mmol/L (3.5-5.5); Total Protein, Blood 7.7 g/dL (6.4-8.2)
[2022-08-01 13:02] LABS: White Blood Cells, Urine 50-100 /hpf (0-5)
[2022-08-01 13:03] LABS: Bacteria Many /hpf; Squamous Epithelial Cells Many /hpf (Few)
[2022-08-01 16:53] LABS: Source, Urine Straight Cath
[2022-08-01 17:02] LABS: Bilirubin, Urine Neg (Neg); Blood, Urine Neg (Neg); Color, Urine Yellow (P-Yellow); Glucose Qualitative, Urine Neg (Neg); Ketones, Urine Neg (Neg); Leukocyte Esterase, Urine Neg (Neg); Nitrite, Urine Neg (Neg); Protein, Urine 1+ (Neg); Specific Gravity, Urine 1.025 (1.003-1.022); Urobilinogen, Urine NORM (Normal)
[2022-08-01 17:11] LABS: Appearance, Urine Clear (Clear)
== END 2022-08-01 18:08 | disposition home or self-care (01) ==
LOC: ER 11:07
PROVIDERS: Student in an Organized Health Care Education/Training Program
DX: U07.1 COVID-19 (principal); Z88.5 Allergy status to narcotic agent; Z88.8 Allergy status to other drugs, medicaments and biological substances; Z79.899 Other long term (current) drug therapy; Z79.84 Long term (current) use of oral hypoglycemic drugs; E11.9 Type 2 diabetes mellitus without complications
CPT/HCPCS: 36415; 71046; 80053; 81001; 85025; 87086; 93005; 93010; 96374; 99284-25; J1885; J7030

== ENCOUNTER 2023-02-28 04:44 | Inpatient (IN) | payer MEDICARE, OTHER ==
[~2023-02-28] VITALS: Ht 165.1 cm; Wt 90.7 kg
[~2023-02-28 04:44] MED LIST changes: -CHOL10002 PO; +VITAMIN D31000 UNI1 PO
[2023-02-28 05:02] LABS: BASOPHILS ABSOLUTE AUTO 0.01 K/mm3 (0.00-0.23); BASOPHILS PERCENT AUTO 0 % (0-2); EOSINOPHILS ABSOLUTE AUTO 0.08 K/mm3 (0.00-0.68); EOSINOPHILS PERCENT AUTO 1 % (0-6); Hematocrit 39.6 % (33.0-51.0); Hemoglobin 13.2 g/dL (11.5-16.0); IMMATURE GRAN ABSOLUTE AUTO 0.04 K/mm3 (0.00-0.10); IMMATURE GRAN PERCENT AUTO 1 % (0-1); LYMPHOCYTES ABSOLUTE AUTO 1.45 K/mm3 (0.84-5.20); LYMPHOCYTES PERCENT AUTO 22 % (21-46); MONOCYTES ABSOLUTE AUTO 0.51 K/mm3 (0.16-1.47); MONOCYTES PERCENT AUTO 8 % (4-13); Mean Corpuscular HGB 28.8 pg (26.0-34.0); Mean Corpuscular HGB Conc 33.3 g/dL (31.5-36.5); Mean Corpuscular Volume 86 fL (80-100); Mean Platelet Volume 9.7 fL (9.1-12.4); NEUTROPHILS ABSOLUTE AUTO 4.42 K/mm3 (1.96-9.15); NEUTROPHILS PERCENT AUTO 68 % (41-73); Platelet Count 293 K/mm3 (150-400); RDW Coefficient Variation 13.1 % (11.7-14.2); RDW Standard Deviation 41.1 fL (35.1-46.3); Red Blood Cell Count 4.59 M/mm3 (3.80-5.20); White Blood Cell Count 6.51 K/mm3 (4.00-11.30)
[2023-02-28 05:23] LABS: Albumin, Blood 2.8 g/dL (3.4-5.0); Albumin/Globulin Ratio 0.8 (0.8-1.8); Bilirubin, Total 0.4 mg/dL (0.1-1.0); Bun/Creatinine Ratio 19.7 (12.0-20.0); Calcium, Blood 8.1 mg/dL (8.5-10.1); Creatinine, Blood 0.61 mg/dL (0.40-1.00); Globulin, Blood 3.4 g/dL (2.2-4.0); Magnesium, Blood 1.9 mg/dL (1.6-2.4); Total Protein, Blood 6.2 g/dL (6.4-8.2)
[2023-02-28 06:19] LABS: Adenovirus Not Detected (NOT DETECT); Coronavirus 229E Not Detected (NOT DETECT); Coronavirus HKU1 Not Detected (NOT DETECT); Coronavirus NL63 Not Detected (NOT DETECT); Coronavirus OC43 Not Detected (NOT DETECT)
[2023-02-28 06:20] LABS: Bordetella pertussis Not Detected (NOT DETECT); Chlamydophila pneumoniae Not Detected (NOT DETECT); Human Metapneumovirus Not Detected (NOT DETECT); Human Rhinovirus/Enterovirus Not Detected (NOT DETECT); Influenza A/2009-H1 Not Detected (NOT DETECT); Influenza A/H1 Not Detected (NOT DETECT); Influenza A/H3 Not Detected (NOT DETECT); Influenza B Not Detected (NOT DETECT); Mycoplasma pneumoniae Not Detected (NOT DETECT); Parainfluenza Virus 1 Not Detected (NOT DETECT); Parainfluenza Virus 2 Not Detected (NOT DETECT); Parainfluenza Virus 3 Not Detected (NOT DETECT); Parainfluenza Virus 4 Not Detected (NOT DETECT); Respiratory Syncytial Virus Not Detected (NOT DETECT); SARS-Cov-2 (COVID-19), BioFire Not Detected (NOT DETECT)
[2023-02-28 06:37] LABS: Source, Urine Foley catheter
[2023-02-28 06:49] LABS: Appearance, Urine Clear (Clear); Bilirubin, Urine Neg (Neg); Blood, Urine 1+ (Neg); Color, Urine Yellow (P-Yellow); Glucose Qualitative, Urine Neg (Neg); Ketones, Urine Neg (Neg); Leukocyte Esterase, Urine Neg (Neg); Nitrite, Urine Neg (Neg); Protein, Urine 1+ (Neg); Specific Gravity, Urine 1.025 (1.003-1.022); Urobilinogen, Urine NORM (Normal)
[2023-02-28 06:58] LABS: Calcium Oxalate Crystals Many /hpf
[2023-02-28 06:59] LABS: Mucus Heavy (0-Heavy); White Blood Cells, Urine 0-2 /hpf (0-5)
[2023-02-28 07:01] LABS: Bacteria Mod /hpf; Squamous Epithelial Cells Few /hpf (Few)
[2023-02-28 13:52] VITALS: BP 126/79
[2023-02-28] MEDS ORDERED: Januvia100 MG PO (14:26)
[2023-02-28] MEDS ORDERED: DOXY100 PO (14:27)
--- NOTE | 2023-02-28 15:28 | NUR ---
ADMIT SUMMARY: PT ARRIVED TO ROOM 327 VIA GURNEY. PT ALERT, ORIENTED X 4, PLEASANT AND COOPERATIVE. PT UNABLE TO STAND PIVOT TO BED. SLIDE SHEET USED TO SLIDE PT OVER TO BED. PT REPORTS "I AM JUST TO WEAK AT THIS TIME, MAYBE TOMORROW WHEN I AM FEELING BETTER." PT DENIES PAIN, SOB, NAUSEA. PT DENIES HAVING ANY FIRE STARTING MATERIALS. DENIES SMOKING. SPOUSE PRESENT ON ADMIT AND LEAVES SHORTLY AFTER. PT ORIENTED TO CALL LIGHT. BED IN LOW POSITION. 3 RAILS UP.
--- NOTE | 2023-02-28 16:45 | NUR ---
PT STATED THAT SHE FELT LIKE SHE WAS "HOT." THIS LN NOTED THAT SHE WAS A LITTLE DIAPHORETIC ACROSS HER FORHEAD. SHE WAS A LITTLE WARM TO THE TOUCH. COOL AT CHEEKS WHICH WERE A LITTLE VINICIO IN COLOR. ORAL TEMP WAS 98.5.
--- NOTE | 2023-02-28 18:37 | NUR ---
SHIFT SUMMARY: PT A/O X 4, BEDREST AT THIS TIME DUE TO WEAKNESS. PT REPORTS AT BASELINE SHE IS ABLE TO AMBULATE STIFFLY FROM BED TO BATHROOM WITH WALKER WITHOUT ASSISTANCE. PT REPORTS OCCASIONAL DRY NON PRODUCTIVE COUGH. LS ARE CLEAR. PT FEET ARE RED AND WARM, PT STATES THIS IS HER BASELINE. PT HAS REMAINED AFEBRILE SINCE ADMISSION.
[2023-02-28 19:35] VITALS: BP 119/74
--- NOTE | 2023-03-01 03:55 | NUR ---
SHIFT SUMMARY NOC PT A/O X 4. PLEASANT AND COOPERATIVE WITH CARE. PT HAD COUGHING EPISODE DURING NIGHT AND SPO2 DROPPED TO 90% ON RA. RT PLACED PT ON O2 2L/NC AND GAVE DUONEB TX. ORDER FOR TESSALON PEARLS 100 MG TID PRN OBTAINED FOR DRY COUGH. PT HAD C/O OF N/T IN BLE BUT REPORTED IT BASELINE AND RELIEVED WITH PM BACLOFEN. LO STILL IN PLACE DRAINING YELLOW URINE TO GRAVITY. NO OTHER ACUTECHANGES TO REPORT. PT IS CURRENTLY RESTING WITH BED IN LOWEST POSITION, AND CALL LIGHT WITHIN REACH.
[2023-03-01 04:57] VITALS: BP 122/68
[2023-03-01 05:43] LABS: BASOPHILS ABSOLUTE AUTO 0.01 K/mm3 (0.00-0.23); BASOPHILS PERCENT AUTO 0 % (0-2); EOSINOPHILS ABSOLUTE AUTO 0.01 K/mm3 (0.00-0.68); EOSINOPHILS PERCENT AUTO 0 % (0-6); Hematocrit 37.6 % (33.0-51.0); Hemoglobin 12.5 g/dL (11.5-16.0); IMMATURE GRAN ABSOLUTE AUTO 0.06 K/mm3 (0.00-0.10); IMMATURE GRAN PERCENT AUTO 1 % (0-1); LYMPHOCYTES ABSOLUTE AUTO 1.25 K/mm3 (0.84-5.20); LYMPHOCYTES PERCENT AUTO 21 % (21-46); MONOCYTES ABSOLUTE AUTO 0.49 K/mm3 (0.16-1.47); MONOCYTES PERCENT AUTO 8 % (4-13); Mean Corpuscular HGB 28.7 pg (26.0-34.0); Mean Corpuscular HGB Conc 33.2 g/dL (31.5-36.5); Mean Corpuscular Volume 86 fL (80-100); Mean Platelet Volume 9.9 fL (9.1-12.4); NEUTROPHILS ABSOLUTE AUTO 4.05 K/mm3 (1.96-9.15); NEUTROPHILS PERCENT AUTO 69 % (41-73); Platelet Count 318 K/mm3 (150-400); RDW Coefficient Variation 13.1 % (11.7-14.2); RDW Standard Deviation 41.6 fL (35.1-46.3); Red Blood Cell Count 4.36 M/mm3 (3.80-5.20); White Blood Cell Count 5.87 K/mm3 (4.00-11.30)
[2023-03-01 06:12] LABS: Albumin, Blood 2.8 g/dL (3.4-5.0); Albumin/Globulin Ratio 0.8 (0.8-1.8); Bilirubin, Total 0.4 mg/dL (0.1-1.0); Bun/Creatinine Ratio 20.2 (12.0-20.0); C-REACTIVE PROTEIN, EXT RANGE 1.21 mg/dL (0.000-0.300); Calcium, Blood 8.3 mg/dL (8.5-10.1); Creatinine, Blood 0.64 mg/dL (0.40-1.00); Globulin, Blood 3.3 g/dL (2.2-4.0); Magnesium, Blood 2.3 mg/dL (1.6-2.4); Phosphorus, Blood 3.7 mg/dL (2.5-4.9); Total Protein, Blood 6.1 g/dL (6.4-8.2)
[2023-03-01 07:48] VITALS: BP 117/72
[2023-03-01 14:35] VITALS: BP 114/74
--- NOTE | 2023-03-01 18:31 | NUR ---
SHIFT SUMMARY PT A/OX4. PLEASANT AND COOPERATIVE. PT REPORTS SHE IS FEELING MUCH BETTER SINCE IV ABOX. ABLE TO MAKE NEEDS KNOWN. APPITITE IS GOOD. SPUTUM SAMPLE SENT TO LAB PENDING FINAL RESULTS. PT CONCERN FOR DEHYDRATION; DR XIONG ORDER 1X 500ML NS AT 100MLS HR. LEFT HAND IV PAINFUL; DC'D; NEW IV TO LEFT UPPER ARM.
[2023-03-01 19:25] VITALS: BP 108/61
--- NOTE | 2023-03-02 04:17 | NUR ---
SHIFT SUMMARY NOC PT A/O X 4. PLEASANT AND COOPERATIVE WITH CARE. NO ACUTE CHANGES TO REPORT. PT RECEIVED NS 500 ML X 1 DUE TO PT DEHYDRATION CONCERNS. PT WAS ON RA AT BEGINNING OF SHIFT, BUT AROUND 0100 PT HAD COUGHING EPISODE AND SPO2 DROPPED INTO HIGH 80'S. 2.5L/NC O2 APPLIED AND SPO2 INCREASED >95%. RT ADMINSTERED DUONEB TREATMENT AND RECOMMENDED THAT PT USE 02 WHEN SLEEPING. PT STATES EAGERNESS TO HAVING LO CATHETER HOPEFULLY REMOVED TODAY SO THAT THEY CAN PREPARE TO RETURN HOME SOON. PT HAD C/O OF BACK PAIN FROM EXCESSIVE COUGHING AND TYLENOL GIVEN. PT IS CURRENTLY RESTING WITH BED IN LOWEST POSITION, AND CALL LIGHT WITHIN REACH.
[2023-03-02 05:20] VITALS: BP 109/68
[2023-03-02 07:27] VITALS: BP 117/64
--- NOTE | 2023-03-02 15:20 | NUR ---
SHIFT SUMMARY PATIENT IN BED THIS SHIFT, TOLERATING ABX WELL. DISCONTINUED LO THIS SHIFT, WAITING FOR VOID, PUREWICK IN PLACE. TOLERATING ROOM AIR WELL WHILE AWAKE. WILL CONITNUE TO MONITOR.
[2023-03-02 15:22] VITALS: BP 116/68
[2023-03-02 19:25] VITALS: BP 126/80
--- NOTE | 2023-03-03 04:17 | NUR ---
SHIFT SUMMARY NOC PT A/O X 4. PLEASANT AND COOPERATIVE WITH CARE. NO ACUTE CHANGES TO REPORT. PT HAD ANOTHER COUGHING EPISODE AROUND 0100 EVEN ON 2L/NC WHILE SLEEPING, AND RT ADMINSTERED DUONEB TREATMENT. TESSALON SHARON ALSO GIVEN BY RN. PT HAS PUREWICK IN PLACE AFTER LO D/C YESTERDAY. PT HAS PT/OT EVAL/TREAT SCHEDULED FOR TODAY. PT IS CURRENTLY RESTING WITH BED IN LOWEST POSITION, AND CALL LIGHT WITHIN REACH.
[2023-03-03 05:22] VITALS: BP 121/61
[2023-03-03 06:07] LABS: BASOPHILS ABSOLUTE AUTO 0.01 K/mm3 (0.00-0.23); BASOPHILS PERCENT AUTO 0 % (0-2); EOSINOPHILS ABSOLUTE AUTO 0.01 K/mm3 (0.00-0.68); EOSINOPHILS PERCENT AUTO 0 % (0-6); Hematocrit 37.5 % (33.0-51.0); Hemoglobin 12.3 g/dL (11.5-16.0); IMMATURE GRAN ABSOLUTE AUTO 0.09 K/mm3 (0.00-0.10); IMMATURE GRAN PERCENT AUTO 2 % (0-1); LYMPHOCYTES PERCENT AUTO 21 % (21-46); MONOCYTES ABSOLUTE AUTO 0.85 K/mm3 (0.16-1.47); MONOCYTES PERCENT AUTO 15 % (4-13); Mean Corpuscular HGB 28.3 pg (26.0-34.0); Mean Corpuscular HGB Conc 32.8 g/dL (31.5-36.5); Mean Corpuscular Volume 86 fL (80-100); Mean Platelet Volume 9.4 fL (9.1-12.4); NEUTROPHILS ABSOLUTE AUTO 3.44 K/mm3 (1.96-9.15); NEUTROPHILS PERCENT AUTO 61 % (41-73); Platelet Count 393 K/mm3 (150-400); RDW Coefficient Variation 13.2 % (11.7-14.2); RDW Standard Deviation 41.7 fL (35.1-46.3); Red Blood Cell Count 4.34 M/mm3 (3.80-5.20)
[2023-03-03 06:25] LABS: Anion Gap 5 mmol/L (6-16); Blood Urea Nitrogen 15 mg/dL (8-24); Bun/Creatinine Ratio 19.7 (12.0-20.0); CO2, Blood 27 mmol/L (21-32); Calcium, Blood 8.7 mg/dL (8.5-10.1); Chloride, Blood 107 mmol/L (98-108); Creatinine, Blood 0.76 mg/dL (0.40-1.00); Glomerular Filtration Rate 92 (60-); Glucose, Blood 132 mg/dL (70-99); Phosphorus, Blood 3.6 mg/dL (2.5-4.9); Potassium, Blood 3.6 mmol/L (3.5-5.5); Sodium, Blood 139 mmol/L (136-145)
[2023-03-03 07:18] VITALS: BP 108/67
[2023-03-03 15:42] VITALS: BP 126/73
[2023-03-03 20:36] VITALS: BP 127/71
--- NOTE | 2023-03-04 04:31 | NUR ---
SHITF SUMMARY; NO ACUTE CHANGES OVERNIGHT. THE PT IS AXO X4 AND HAS BEEN SLEEPING IN BED FOR THE DURATION OF THE SHIFT. THE PT HAS A PUREWICK IN PLACE. THE PT IS ON 2L NC, SHE DESATS DURING THE NIGHT WITHOUT O2. THE PT DENIES ANY SOB, CHEST PAIN/PRESSURE, N/V OR PAIN THIS SHIFT. CURRENTLY THE PT IS SLEEPING IN BED WITH THE BED IN THE LOWEST POSITION AND THE CALL LIGHT AT BEDSIDE. FIRE SAFETY MAINTAINED T/O THE NIGHT.
[2023-03-04 06:02] VITALS: BP 102/63
[2023-03-04 07:16] LABS: BASOPHILS ABSOLUTE AUTO 0.01 K/mm3 (0.00-0.23); BASOPHILS PERCENT AUTO 0 % (0-2); EOSINOPHILS ABSOLUTE AUTO 0.01 K/mm3 (0.00-0.68); EOSINOPHILS PERCENT AUTO 0 % (0-6); Hematocrit 38.9 % (33.0-51.0); Hemoglobin 12.8 g/dL (11.5-16.0); IMMATURE GRAN PERCENT AUTO 2 % (0-1); LYMPHOCYTES ABSOLUTE AUTO 1.63 K/mm3 (0.84-5.20); LYMPHOCYTES PERCENT AUTO 25 % (21-46); MONOCYTES ABSOLUTE AUTO 0.74 K/mm3 (0.16-1.47); MONOCYTES PERCENT AUTO 11 % (4-13); Mean Corpuscular HGB 28.5 pg (26.0-34.0); Mean Corpuscular HGB Conc 32.9 g/dL (31.5-36.5); Mean Corpuscular Volume 87 fL (80-100); Mean Platelet Volume 9.2 fL (9.1-12.4); NEUTROPHILS ABSOLUTE AUTO 4.11 K/mm3 (1.96-9.15); NEUTROPHILS PERCENT AUTO 62 % (41-73); Platelet Count 412 K/mm3 (150-400); RDW Coefficient Variation 13.5 % (11.7-14.2); RDW Standard Deviation 42.5 fL (35.1-46.3); Red Blood Cell Count 4.49 M/mm3 (3.80-5.20)
[2023-03-04 07:24] VITALS: BP 111/63
[2023-03-04 07:34] LABS: Bun/Creatinine Ratio 17.8 (12.0-20.0); Calcium, Blood 8.6 mg/dL (8.5-10.1); Creatinine, Blood 0.9 mg/dL (0.40-1.00); Potassium, Blood 3.9 mmol/L (3.5-5.5)
[2023-03-04 16:42] VITALS: BP 123/70
--- NOTE | 2023-03-04 16:58 | NUR ---
SHIFT SUMMARY: PT IS ADMITTED FOR PNEUMONIA. SHE IS ALERT AND ABLE TO MAKE NEEDS KNOWN. IS A FULL CODE. VITALS ARE STABLE. DENIES PAIN OR SHORTNESS OF BREATH. BEEN ON ROOM AIR THROUGH MOST OF THE DAY. IV TO LEFT FOREARM WAS D/C DUE TO INFILTRATION OF LEVAQUIN. DR FIERRO NOTIFIED BY PHONE. WAS GIVEN ORDERS TO DC IV ABX AND CHANGE TO ORAL SAME STRENGTH AND TIMING. NO FURTHER IV THERAPY NEEDED. PHARMACY WAS CONSULTED FOR FOLLOW ON ACTIONS OF INFILTRATION. WAS INSTRUCTED NO ACTIONS NEEDED AT THIS TIME. PT DID WORK WITH P. THERAPY BUT DID NOT WANT TO WORK WITH OT. LAST BM NOTED 02-27-23. PT STATED THAT IS NOT UNCOMMON FOR HER AND HAS HAS NOT BEEN EATING VERY MUCH. DENIES GI DISCOMFORT.
[2023-03-04 19:59] VITALS: BP 109/66
--- NOTE | 2023-03-05 04:06 | NUR ---
SHIFT SUMMARY NO ACUTE CHANGES THIS SHIFT. PT UNDERGOING SLEEP STUDY AT THIS TIME PER RT. O2 SATS ON RA RANGE FROM 88-92% DENIES PAIN. PUREWICK IN PLACE. PT USES CALL LIGHT APPROPRIATEY,
[2023-03-05 06:02] VITALS: BP 109/64
[2023-03-05 07:44] VITALS: BP 107/58
[2023-03-05 11:44] LABS: BASOPHILS ABSOLUTE AUTO 0.01 K/mm3 (0.00-0.23); BASOPHILS PERCENT AUTO 0 % (0-2); EOSINOPHILS ABSOLUTE AUTO 0.01 K/mm3 (0.00-0.68); EOSINOPHILS PERCENT AUTO 0 % (0-6); Hematocrit 38.3 % (33.0-51.0); Hemoglobin 12.7 g/dL (11.5-16.0); IMMATURE GRAN ABSOLUTE AUTO 0.06 K/mm3 (0.00-0.10); IMMATURE GRAN PERCENT AUTO 1 % (0-1); LYMPHOCYTES ABSOLUTE AUTO 0.99 K/mm3 (0.84-5.20); LYMPHOCYTES PERCENT AUTO 13 % (21-46); MONOCYTES ABSOLUTE AUTO 0.63 K/mm3 (0.16-1.47); MONOCYTES PERCENT AUTO 8 % (4-13); Mean Corpuscular HGB 28.6 pg (26.0-34.0); Mean Corpuscular HGB Conc 33.2 g/dL (31.5-36.5); Mean Corpuscular Volume 86 fL (80-100); Mean Platelet Volume 9.1 fL (9.1-12.4); NEUTROPHILS ABSOLUTE AUTO 6.07 K/mm3 (1.96-9.15); NEUTROPHILS PERCENT AUTO 78 % (41-73); Platelet Count 430 K/mm3 (150-400); RDW Coefficient Variation 13.4 % (11.7-14.2); RDW Standard Deviation 41.9 fL (35.1-46.3); Red Blood Cell Count 4.44 M/mm3 (3.80-5.20); White Blood Cell Count 7.77 K/mm3 (4.00-11.30)
[2023-03-05 11:49] LABS: Bun/Creatinine Ratio 18.2 (12.0-20.0); Calcium, Blood 8.9 mg/dL (8.5-10.1); Creatinine, Blood 0.82 mg/dL (0.40-1.00); Potassium, Blood 3.9 mmol/L (3.5-5.5)
[2023-03-05] MEDS ORDERED: ALBU90OI INH (13:00)
[2023-03-05] MEDS ORDERED: BENZ100A PO (13:01)
[2023-03-05] MEDS ORDERED: GUAI600T33 PO (13:01)
[2023-03-05] MEDS ORDERED: LEVO750 PO (13:02)
[2023-03-05] MEDS ORDERED: PRED20 PO (13:04)
--- NOTE | 2023-03-05 13:53 | NUR ---
DISCHARGE SUMMARY: PT WAS ADMITTED FOR PNEUMONIA. IS ALERT AND ABLE TO MAKE NEEDS KNOWN. REVIEWED D/C INSTRUCTIONS AND MEDICATIONS WITH PT. PT WAS TAKEN HOME BY SIGNIFICANT OTHER.
== END 2023-03-05 13:46 | disposition home health service (06) | DRG 871 ==
LOC: ER 04:44 → ERHOLD 07:01 → MEDS 07:01
PROVIDERS: Internal Medicine; Student in an Organized Health Care Education/Training Program; ADMIT Family Medicine
PROC: 3E03329 Introduction of Other Anti-infective into Peripheral Vein, Percutaneous Approach (ICD-10-PCS; principal; 2023-02-28)
PROC: 0T9B70Z Drainage of Bladder with Drainage Device, Via Natural or Artificial Opening (ICD-10-PCS; 2023-02-28)
DX: A41.9 Sepsis, unspecified organism (principal); J18.9 Pneumonia, unspecified organism; J96.01 Acute respiratory failure with hypoxia; G35 Multiple sclerosis; E11.9 Type 2 diabetes mellitus without complications; E78.5 Hyperlipidemia, unspecified; I65.29 Occlusion and stenosis of unspecified carotid artery; F41.8 Other specified anxiety disorders; Z92.25 Personal history of immunosuppression therapy; Z88.5 Allergy status to narcotic agent; Z88.8 Allergy status to other drugs, medicaments and biological substances; Z79.899 Other long term (current) drug therapy; Z91.048 Other nonmedicinal substance allergy status; Z79.84 Long term (current) use of oral hypoglycemic drugs; Z79.2 Long term (current) use of antibiotics; Z98.890 Other specified postprocedural states; Z98.1 Arthrodesis status; Z98.51 Tubal ligation status; Z20.822 Contact with and (suspected) exposure to COVID-19
CPT/HCPCS: 0202U; 36415; 51702; 71045; 80048; 80053; 80069; 81001; 82947; 83605; 83735; 84100; 84145; 85025; 85651; 86140; 87040; 87070; 87086; 87205; 93005; 93010; 94640; 94664; 94760; 96365-59; 96366-59; 96375-59; 97110; 97162; 97165; 97530; 99285-25; A9270; J1650; J1885; J1956; J7030; J7040; J7512

== ENCOUNTER 2023-03-11 14:18 | Emergency (ER) | payer MEDICARE, OTHER ==
[~2023-03-11] VITALS: Ht 165.1 cm; Wt 90.7 kg
[~2023-03-11 14:18] MED LIST changes: +ALBU90OI INH; +BENZ100A PO; +DOXY100 PO; +GUAI600T33 PO; +Januvia100 MG PO; +LEVO750 PO; +PRED20 PO
[2023-03-11 15:06] LABS: BASOPHILS ABSOLUTE AUTO 0.02 K/mm3 (0.00-0.23); BASOPHILS PERCENT AUTO 0 % (0-2); EOSINOPHILS ABSOLUTE AUTO 0.03 K/mm3 (0.00-0.68); EOSINOPHILS PERCENT AUTO 0 % (0-6); Hemoglobin 14.6 g/dL (11.5-16.0); IMMATURE GRAN ABSOLUTE AUTO 0.05 K/mm3 (0.00-0.10); IMMATURE GRAN PERCENT AUTO 1 % (0-1); LYMPHOCYTES ABSOLUTE AUTO 1.31 K/mm3 (0.84-5.20); LYMPHOCYTES PERCENT AUTO 19 % (21-46); MONOCYTES ABSOLUTE AUTO 0.57 K/mm3 (0.16-1.47); MONOCYTES PERCENT AUTO 8 % (4-13); Mean Corpuscular HGB 28.2 pg (26.0-34.0); Mean Corpuscular HGB Conc 32.4 g/dL (31.5-36.5); Mean Corpuscular Volume 87 fL (80-100); Mean Platelet Volume 9.3 fL (9.1-12.4); NEUTROPHILS ABSOLUTE AUTO 4.81 K/mm3 (1.96-9.15); NEUTROPHILS PERCENT AUTO 71 % (41-73); Platelet Count 410 K/mm3 (150-400); RDW Coefficient Variation 13.6 % (11.7-14.2); Red Blood Cell Count 5.18 M/mm3 (3.80-5.20); White Blood Cell Count 6.79 K/mm3 (4.00-11.30)
[2023-03-11 16:02] LABS: Albumin, Blood 3.4 g/dL (3.4-5.0); Albumin/Globulin Ratio 0.9 (0.8-1.8); Bilirubin, Total 0.7 mg/dL (0.1-1.0); Bun/Creatinine Ratio 15.1 (12.0-20.0); Calcium, Blood 8.9 mg/dL (8.5-10.1); Creatinine, Blood 0.8 mg/dL (0.40-1.00); Globulin, Blood 3.6 g/dL (2.2-4.0); Potassium, Blood 3.9 mmol/L (3.5-5.5)
[2023-03-11 18:18] VITALS: BP 109/69
== END 2023-03-11 18:32 | disposition home or self-care (01) ==
LOC: ER 14:18
PROVIDERS: Physician Assistant
DX: R53.1 Weakness (principal); Z79.899 Other long term (current) drug therapy; Z79.52 Long term (current) use of systemic steroids; Z79.84 Long term (current) use of oral hypoglycemic drugs
CPT/HCPCS: 71046; 80053; 85025; 96360; 99285-25; J7030

== ENCOUNTER 2024-12-22 16:20 | Emergency (ER) | payer MEDICARE, OTHER ==
[~2024-12-22] VITALS: Ht 162.6 cm; Wt 79.4 kg
[2024-12-22 17:03] LABS: BASOPHILS ABSOLUTE AUTO 0.02 K/mm3 (0.00-0.23); BASOPHILS PERCENT AUTO 0 % (0-2); EOSINOPHILS ABSOLUTE AUTO 0.06 K/mm3 (0.00-0.68); EOSINOPHILS PERCENT AUTO 1 % (0-6); Hematocrit 42.5 % (33.0-51.0); Hemoglobin 14.1 g/dL (11.5-16.0); IMMATURE GRAN ABSOLUTE AUTO 0.03 K/mm3 (0.00-0.10); IMMATURE GRAN PERCENT AUTO 0 % (0-1); LYMPHOCYTES ABSOLUTE AUTO 1.23 K/mm3 (0.84-5.20); LYMPHOCYTES PERCENT AUTO 16 % (21-46); MONOCYTES ABSOLUTE AUTO 0.52 K/mm3 (0.16-1.47); MONOCYTES PERCENT AUTO 7 % (4-13); Mean Corpuscular HGB Conc 33.2 g/dL (31.5-36.5); Mean Corpuscular Volume 89 fL (80-100); NEUTROPHILS ABSOLUTE AUTO 5.72 K/mm3 (1.96-9.15); NEUTROPHILS PERCENT AUTO 75 % (41-73); NRBC ABSOLUTE 0.00 K/mm3 (0.00-0.02); NRBC Auto 0.0 /100 WBC (0.0-0.2); Platelet Count 333 K/mm3 (150-400); RDW Coefficient Variation 12.5 % (11.7-14.2); RDW Standard Deviation 41.1 fL (35.1-46.3)
[2024-12-22 17:26] LABS: Alanine Aminotransfer (ALT/SGP 16.0 U/L (12-78); Albumin, Blood 3.6 g/dL (3.4-5.0); Albumin/Globulin Ratio 1.0 (0.8-1.8); Anion Gap 9.0 mmol/L (3-11); Aspartate Aminotrans (AST/SGOT 18.0 U/L (12-37); Bilirubin, Total 0.5 mg/dL (0.1-1.0); Blood Urea Nitrogen 11.0 mg/dL (8-24); CO2, Blood 25.0 mmol/L (21-32); Calcium, Blood 8.9 mg/dL (8.5-10.1); Chloride, Blood 104.0 mmol/L (98-108); Creatinine, Blood 0.72 mg/dL (0.40-1.00); Globulin, Blood 3.5 g/dL (2.2-4.0); Glucose, Blood 104.0 mg/dL (70-99); Potassium, Blood 3.9 mmol/L (3.5-5.5); Sodium, Blood 134.0 mmol/L (136-145); Total Protein, Blood 7.1 g/dL (6.4-8.2)
[2024-12-22] MEDS ORDERED: NS 1,000 ML IV SCH (17:45)
[2024-12-22 18:15] VITALS: BP 129/65
== END 2024-12-22 18:36 | disposition home or self-care (01) ==
LOC: ER 16:20
PROVIDERS: Emergency Medicine
DX: K52.9 Noninfective gastroenteritis and colitis, unspecified (principal); E11.65 Type 2 diabetes mellitus with hyperglycemia; E87.1 Hypo-osmolality and hyponatremia; Z88.5 Allergy status to narcotic agent; Z88.8 Allergy status to other drugs, medicaments and biological substances; Z91.048 Other nonmedicinal substance allergy status; Z79.84 Long term (current) use of oral hypoglycemic drugs
CPT/HCPCS: 80053; 83690; 85025; 99284; J7030

== ENCOUNTER 2024-12-28 20:24 | Inpatient (IN) | payer MEDICARE, OTHER ==
[~2024-12-28] VITALS: Ht 162.6 cm; Wt 86.1 kg
[2024-12-28 21:03] LABS: BASOPHILS ABSOLUTE AUTO 0.03 K/mm3 (0.00-0.23); BASOPHILS PERCENT AUTO 1 % (0-2); EOSINOPHILS ABSOLUTE AUTO 0.05 K/mm3 (0.00-0.68); EOSINOPHILS PERCENT AUTO 1 % (0-6); Hematocrit 40.0 % (33.0-51.0); Hemoglobin 13.2 g/dL (11.5-16.0); IMMATURE GRAN ABSOLUTE AUTO 0.07 K/mm3 (0.00-0.10); IMMATURE GRAN PERCENT AUTO 1 % (0-1); LYMPHOCYTES ABSOLUTE AUTO 1.22 K/mm3 (0.84-5.20); LYMPHOCYTES PERCENT AUTO 21 % (21-46); MONOCYTES ABSOLUTE AUTO 0.47 K/mm3 (0.16-1.47); MONOCYTES PERCENT AUTO 8 % (4-13); Mean Corpuscular HGB Conc 33.0 g/dL (31.5-36.5); Mean Corpuscular Volume 88 fL (80-100); NEUTROPHILS ABSOLUTE AUTO 4.11 K/mm3 (1.96-9.15); NEUTROPHILS PERCENT AUTO 69 % (41-73); NRBC ABSOLUTE 0.00 K/mm3 (0.00-0.02); NRBC Auto 0.0 /100 WBC (0.0-0.2); Platelet Count 388 K/mm3 (150-400); RDW Coefficient Variation 12.6 % (11.7-14.2); RDW Standard Deviation 40.2 fL (35.1-46.3)
[2024-12-28 21:21] LABS: Alanine Aminotransfer (ALT/SGP 23.0 U/L (12-78); Albumin, Blood 3.3 g/dL (3.4-5.0); Albumin/Globulin Ratio 0.9 (0.8-1.8); Anion Gap 5.0 mmol/L (3-11); Aspartate Aminotrans (AST/SGOT 30.0 U/L (12-37); Bilirubin, Total 0.6 mg/dL (0.1-1.0); Blood Urea Nitrogen 11.0 mg/dL (8-24); CO2, Blood 30.0 mmol/L (21-32); Calcium, Blood 9.0 mg/dL (8.5-10.1); Chloride, Blood 102.0 mmol/L (98-108); Creatinine, Blood 0.75 mg/dL (0.40-1.00); Globulin, Blood 3.5 g/dL (2.2-4.0); Glucose, Blood 113.0 mg/dL (70-99); Potassium, Blood 4.1 mmol/L (3.5-5.5); Sodium, Blood 133.0 mmol/L (136-145); Total Protein, Blood 6.8 g/dL (6.4-8.2)
[2024-12-28 21:31] LABS: Influenza A, PCR NEGATIVE (NEGATIVE); Influenza B, PCR NEGATIVE (NEGATIVE); Resp Syncytial Virus, PCR NEGATIVE (NEGATIVE); SARS-Cov-2 (COVID-19) PCR, MMC NEGATIVE (NEGATIVE)
[2024-12-28] MEDS ORDERED: Ketorolac Tromethamine 30mg Vial IV ONE (21:35)
[2024-12-28] MEDS ORDERED: NS 500 ML IV SCH (21:35)
[2024-12-28] MEDS ORDERED: NS 1,000 ML IV SCH (22:10)
[2024-12-28] MEDS ORDERED: CefTRIAXone Sodium 1,000 MG in NS 50 ML IV ONE (22:10)
[2024-12-28] MEDS ORDERED: Doxycycline Hyclate 100 MG in Dextrose 5% 250 ML IV ONE (22:10)
[2024-12-28] MEDS ORDERED: MetFORMIN HCl 500 mg PO ONE (22:15)
[2024-12-28] MEDS ORDERED: DULoxetine HCL 30 MG Cap DR PO ONE (22:15)
[2024-12-28] MEDS ORDERED: OZEMPIC0.25 MG/02 SC (23:20)
[2024-12-29] MEDS ORDERED: Ipratropium/Albuterol SulF 2.5-0.5MG/3 ML Amp INH PRN (00:15)
[2024-12-29] MEDS ORDERED: Ondansetron HCl 2 MG / ML 2ML Vial IV PRN (00:15)
[2024-12-29] MEDS ORDERED: NS 1,000 ML IV ONE (00:20)
--- NOTE | 2024-12-29 00:40 | NUR ---
ADMISSION PT ARRIVED TO RM [id number] AT 0040. BEDSIDE REPORT RECIEVED. EXPLAINED CALL LIGHT TO PT, PT VERBALIZED UNDERSTANDING. THIS RN TO ASSUME CARE.
[2024-12-29 00:47] VITALS: BP 124/72
--- NOTE | 2024-12-29 01:30 | NUR ---
PT PASSED BEDSIDE SWALLOW EVAL.
[2024-12-29 04:19] VITALS: BP 119/69
[2024-12-29 04:21] LABS: BASOPHILS ABSOLUTE AUTO 0.02 K/mm3 (0.00-0.23); BASOPHILS PERCENT AUTO 0 % (0-2); EOSINOPHILS ABSOLUTE AUTO 0.07 K/mm3 (0.00-0.68); EOSINOPHILS PERCENT AUTO 1 % (0-6); Hematocrit 37.9 % (33.0-51.0); Hemoglobin 12.4 g/dL (11.5-16.0); IMMATURE GRAN ABSOLUTE AUTO 0.06 K/mm3 (0.00-0.10); IMMATURE GRAN PERCENT AUTO 1 % (0-1); LYMPHOCYTES ABSOLUTE AUTO 1.52 K/mm3 (0.84-5.20); LYMPHOCYTES PERCENT AUTO 26 % (21-46); MONOCYTES ABSOLUTE AUTO 0.48 K/mm3 (0.16-1.47); MONOCYTES PERCENT AUTO 8 % (4-13); Mean Corpuscular HGB Conc 32.7 g/dL (31.5-36.5); Mean Corpuscular Volume 91 fL (80-100); NEUTROPHILS ABSOLUTE AUTO 3.72 K/mm3 (1.96-9.15); NEUTROPHILS PERCENT AUTO 63 % (41-73); NRBC ABSOLUTE 0.00 K/mm3 (0.00-0.02); NRBC Auto 0.0 /100 WBC (0.0-0.2); Platelet Count 355 K/mm3 (150-400); RDW Coefficient Variation 12.6 % (11.7-14.2); RDW Standard Deviation 42.1 fL (35.1-46.3)
[2024-12-29 04:40] LABS: Alanine Aminotransfer (ALT/SGP 22.0 U/L (12-78); Albumin, Blood 2.7 g/dL (3.4-5.0); Albumin/Globulin Ratio 0.8 (0.8-1.8); Anion Gap 7.0 mmol/L (3-11); Aspartate Aminotrans (AST/SGOT 33.0 U/L (12-37); Bilirubin, Total 0.5 mg/dL (0.1-1.0); Blood Urea Nitrogen 10.0 mg/dL (8-24); CO2, Blood 25.0 mmol/L (21-32); Calcium, Blood 7.7 mg/dL (8.5-10.1); Chloride, Blood 110.0 mmol/L (98-108); Creatinine, Blood 0.66 mg/dL (0.40-1.00); Globulin, Blood 3.2 g/dL (2.2-4.0); Glucose, Blood 112.0 mg/dL (70-99); Potassium, Blood 3.6 mmol/L (3.5-5.5); Sodium, Blood 138.0 mmol/L (136-145); Total Protein, Blood 5.9 g/dL (6.4-8.2)
[2024-12-29 06:50] LABS: Magnesium, Blood 1.9 mg/dL (1.6-2.4); Phosphorus, Blood 3.2 mg/dL (2.5-4.9)
[2024-12-29 07:26] VITALS: BP 126/66
[2024-12-29] MEDS ORDERED: Insulin Human Lispro 100 Units/ML 3ML Syringe SC SCH (07:30)
--- NOTE | 2024-12-29 07:37 | NUR ---
SHIFT SUMMARY PT ARRIVED AT 0040, HERE W/ PNA. PT HAS BEEN AOX4, CALM AND COOPERATIVE. SHE HAS BEEN ON TELE, NO EVENTS OVERNIGHT. PT HAS BEEN BEDBOUND, DUE TO EXTREME WEAKNESS BLE. SHE HAS HAD WICKING SYSTEM ON B/C SHE FEELS TOO WEAK TO TRANSFER. PT HAS BEEN ON RA. SHE HAS HAD NO COMPLAINTS OVERNIGHT. NO ACUTE EVENTS OVERNIGHT.
[2024-12-29] MEDS ORDERED: NS 250 ML IV PRN (08:35)
[2024-12-29] MEDS ORDERED: Albuterol HFA200 ACT/6.7 GM INH INH PRN (08:40)
[2024-12-29] MEDS ORDERED: Enoxaparin 40 MG/0.4 ML SYR SC SCH (09:00)
[2024-12-29] MEDS ORDERED: Doxycycline Hyclate 100 MG in Dextrose 5% 250 ML IV SCH (09:00)
[2024-12-29] MEDS ORDERED: DULOXETINE HCL60 M1 PO (11:03)
[2024-12-29] MEDS ORDERED: AZIT250 PO (11:03)
[2024-12-29] MEDS ORDERED: CEFDINIR300 M4 PO (11:03)
[2024-12-29] MEDS ORDERED: METFORMIN HCL500 M3 PO (11:03)
[2024-12-29 11:28] VITALS: BP 120/75
[2024-12-29 17:06] VITALS: BP 131/79
--- NOTE | 2024-12-29 18:23 | NUR ---
SHIFT SUMMARY PT A&OX4, VSS, BEDRIDDEN AT THIS TIME, TOLERATING PO, VOIDING, AND DENIED PAIN. NS 1 OF 1 AND POTASSIUM INFUSED PER ORDER. NO TELE EVENTS. PLAN TO CONT IV ABX. CALL LIGHT WITHIN REACH AND PT ABLE TO MAKE NEEDS KNOWN.
[2024-12-29 19:55] VITALS: BP 139/84
[2024-12-29] MEDS ORDERED: CefTRIAXone Sodium 1,000 MG in NS 100 ML IV SCH (21:00)
[2024-12-29] MEDS ORDERED: DULoxetine HCL 30 MG Cap DR PO SCH (21:00)
[2024-12-29] MEDS ORDERED: DULoxetine HCL 60 MG Capsule DR PO ONE (21:15)
[2024-12-30 00:27] VITALS: BP 143/82
[2024-12-30 04:54] VITALS: BP 131/73
[2024-12-30 05:30] LABS: BASOPHILS ABSOLUTE AUTO 0.03 K/mm3 (0.00-0.23); BASOPHILS PERCENT AUTO 0 % (0-2); EOSINOPHILS ABSOLUTE AUTO 0.11 K/mm3 (0.00-0.68); EOSINOPHILS PERCENT AUTO 2 % (0-6); Hematocrit 36.4 % (33.0-51.0); Hemoglobin 12.3 g/dL (11.5-16.0); IMMATURE GRAN ABSOLUTE AUTO 0.06 K/mm3 (0.00-0.10); IMMATURE GRAN PERCENT AUTO 1 % (0-1); LYMPHOCYTES ABSOLUTE AUTO 1.26 K/mm3 (0.84-5.20); LYMPHOCYTES PERCENT AUTO 17 % (21-46); MONOCYTES ABSOLUTE AUTO 0.58 K/mm3 (0.16-1.47); MONOCYTES PERCENT AUTO 8 % (4-13); Mean Corpuscular HGB Conc 33.8 g/dL (31.5-36.5); Mean Corpuscular Volume 88 fL (80-100); NEUTROPHILS ABSOLUTE AUTO 5.34 K/mm3 (1.96-9.15); NEUTROPHILS PERCENT AUTO 72 % (41-73); NRBC ABSOLUTE 0.00 K/mm3 (0.00-0.02); NRBC Auto 0.0 /100 WBC (0.0-0.2); Platelet Count 358 K/mm3 (150-400); RDW Coefficient Variation 12.7 % (11.7-14.2); RDW Standard Deviation 40.5 fL (35.1-46.3)
[2024-12-30 05:36] LABS: Anion Gap 9.0 mmol/L (3-11); Blood Urea Nitrogen 9.0 mg/dL (8-24); CO2, Blood 24.0 mmol/L (21-32); Calcium, Blood 8.4 mg/dL (8.5-10.1); Chloride, Blood 107.0 mmol/L (98-108); Creatinine, Blood 0.64 mg/dL (0.40-1.00); Glucose, Blood 113.0 mg/dL (70-99); Potassium, Blood 4.0 mmol/L (3.5-5.5); Sodium, Blood 136.0 mmol/L (136-145)
--- NOTE | 2024-12-30 06:21 | NUR ---
SHIFT SUMMARY PT HERE FOR PNA. SHE HAS BEEN RESTING COMFORTABLY OVERNIGHT. SHE HAS BEEN AOX4, CALM AND COOPERATIVE. PT HAS BEEN ON TELE, NO EVENTS OVERNIGHT. SHE HAS BEEN BEDREST. SHE HAS EXTREME WEAKNESS IN BLE DUE TO MS. SHE HAS BEEN ON WICKING SYSTEM. SHE HAS HAD NO COMPLAINTS OVERNIGHT. NO ACUTE EVENTS OVERNIGHT.
[2024-12-30 07:27] VITALS: BP 120/80
[2024-12-30] MEDS ORDERED: AMOCLA875 PO (10:37)
[2024-12-30] MEDS ORDERED: ACET120S PR (10:41)
--- NOTE | 2024-12-30 13:41 | NUR ---
[id number] discahrged home, instructions given to patient and , instructions for medications, follow up and further needs, both stated understanding and dneied further questions
[2024-12-30] MEDS ORDERED: DULoxetine HCL 30 MG Cap DR PO SCH (21:00)
== END 2024-12-30 13:52 | disposition home or self-care (01) | DRG 871 ==
LOC: ER 20:24 → MEDS 22:28
PROVIDERS: Family Medicine; Student in an Organized Health Care Education/Training Program; ADMIT Internal Medicine
DX: A41.9 Sepsis, unspecified organism (principal); J18.9 Pneumonia, unspecified organism; D84.9 Immunodeficiency, unspecified; G35 Multiple sclerosis; E11.9 Type 2 diabetes mellitus without complications; E78.5 Hyperlipidemia, unspecified; Z79.899 Other long term (current) drug therapy; Z79.84 Long term (current) use of oral hypoglycemic drugs; Z88.5 Allergy status to narcotic agent; Z91.048 Other nonmedicinal substance allergy status
CPT/HCPCS: 36415; 71046; 80048; 80053; 82947; 83605; 83735; 83880; 84100; 85025; 87081; 87430; 87637; 92610; 93005; 93010; 94760; 96374; 99285-25; A6590; A9270; J0696; J1650; J1885; J3480; J7030; J7050; J7060